=== PATIENT | female | born 1970 | race Caucasian/White ===

== ENCOUNTER 2017-04-26 16:24 | Emergency (ER) | payer OTHER ==
[2017-04-26 16:43] VITALS: BP 131/81; PULSE 74; TEMP 98.3; BMI 24.5
[2017-04-26 17:12] LABS: URINE MARIJUANA THC NEGATIVE ng/ml (CUTOFF=50)
[2017-04-26] MEDS ORDERED: KETOROLAC TROMETHAMINE 60 MG/2 ML VIAL IM ONE (17:30)
[2017-04-26] MEDS ORDERED: KETOROLAC TROMETHAMINE 60 MG/2 ML VIAL ONE (17:39)
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
--- NOTE | 2017-04-27 20:41 | EKG ---
Test Reason : Blood Pressure : / mmHG Vent. Rate : 063 BPM Atrial Rate : 063 BPM P-R Int : 124 ms QRS Dur : 062 ms QT Int : 400 ms P-R-T Axes : 007 015 028 degrees QTc Int : 409 ms NORMAL SINUS RHYTHM BENIGN EARLY REPOLARIZATION NO PREVIOUS ECGS AVAILABLE Confirmed by JONATHON NARANJO MD ([id number]) on 04/27/2017 8:40:42 PM Referred By: Confirmed By:JONATHON NARANJO MD
== END 2017-04-26 20:38 ==
LOC: JER 16:24
CPT/HCPCS: 71020-TC; 72125-TC; 73610-TC-LT; 80307; 84703; 93005; 93010; 99283-25